=== PATIENT | male | born 1990 | race Hispanic/Latino ===

== ENCOUNTER 2019-10-06 21:16 | Emergency (ER) | payer SELFPAY ==
--- NOTE | 2019-10-06 22:48 | RAD ---
CHEST ONE VIEW: History: shortness of breath Comparison: None FINDINGS: The lungs are clear. No pneumothorax. No effusion. Cardiac silhouette and mediastinal contours are wi thin normal limits. No acute osseous abnormality. IMPRESSION: No acute intrathoracic abnormality. POS: HOME
== END 2019-10-06 22:54 | disposition home or self-care (01) ==
LOC: ERS 21:16
DX: J06.9 Acute upper respiratory infection, unspecified (principal); R03.0 Elevated blood-pressure reading, without diagnosis of hypertension; B20 Human immunodeficiency virus [HIV] disease; F32.9 Major depressive disorder, single episode, unspecified; F17.290 Nicotine dependence, other tobacco product, uncomplicated
CPT/HCPCS: 71045